=== PATIENT | female | born 1940 ===

== ENCOUNTER 2017-10-23 10:19 | Outpatient (CLI) | payer OTHER ==
[~2017-10-23 10:19] MED LIST: AMARANTH100 GM; ASA81 MG; CIPRO500 MG; COZAAR100 MG; GABAPENTIN100 MG; JANUMET 50-1,1 UDTAB; METFORMIN HCL850 MG; VERAPAMIL HCL240 MG; VISTARIL50 MG; ZOLOFT50 MG
== END 2017-10-23 11:00 | disposition home or self-care (01) ==
LOC: NUCLEAR 10:19
DX: M81.0 Age-related osteoporosis without current pathological fracture (principal); I10 Essential (primary) hypertension; M54.5 Low back pain; E78.89 Other lipoprotein metabolism disorders; E55.9 Vitamin D deficiency, unspecified; E03.8 Other specified hypothyroidism; E66.8 Other obesity; M89.9 Disorder of bone, unspecified; E11.9 Type 2 diabetes mellitus without complications; E11.51 Type 2 diabetes mellitus with diabetic peripheral angiopathy without gangrene; G62.89 Other specified polyneuropathies; E11.42 Type 2 diabetes mellitus with diabetic polyneuropathy; K21.9 Gastro-esophageal reflux disease without esophagitis

== ENCOUNTER 2017-10-23 11:08 | Outpatient (CLI) | payer OTHER | END 2017-10-23 15:05 | disposition home or self-care (01) | LOC: MAMO-SONO 11:08 | DX: Z12.31 Encounter for screening mammogram for malignant neoplasm of breast (principal); Z87.898 Personal history of other specified conditions; N63.10 Unspecified lump in the right breast, unspecified quadrant; N63.20 Unspecified lump in the left breast, unspecified quadrant; I10 Essential (primary) hypertension; M54.5 Low back pain; E78.89 Other lipoprotein metabolism disorders; E55.9 Vitamin D deficiency, unspecified; E03.8 Other specified hypothyroidism; E66.8 Other obesity; M89.9 Disorder of bone, unspecified; E11.51 Type 2 diabetes mellitus with diabetic peripheral angiopathy without gangrene; G62.9 Polyneuropathy, unspecified; E11.42 Type 2 diabetes mellitus with diabetic polyneuropathy; K21.9 Gastro-esophageal reflux disease without esophagitis; N64.4 Mastodynia ==

== ENCOUNTER 2018-04-23 12:24 | Outpatient (CLI) | payer OTHER | END 2018-04-23 12:28 | disposition home or self-care (01) | LOC: RAD 12:24 | DX: J06.9 Acute upper respiratory infection, unspecified (principal) ==

== ENCOUNTER 2020-11-17 17:00 | Emergency (ER) | payer OTHER ==
[~2020-11-17] VITALS: Ht 162.6 cm; Wt 90.7 kg
== END 2020-11-17 19:26 | disposition home or self-care (01) ==
LOC: ER 17:00
DX: E11.65 Type 2 diabetes mellitus with hyperglycemia (principal); Z79.84 Long term (current) use of oral hypoglycemic drugs

== ENCOUNTER 2022-07-16 10:59 | Emergency (ER) | payer OTHER ==
[~2022-07-16] VITALS: Ht 162.6 cm; Wt 90.7 kg
[2022-07-16] MEDS ORDERED: CELEBREX100 MG PO (14:12)
[2022-07-16] MEDS ORDERED: METAXALONE400 MG PO (14:12)
== END 2022-07-16 14:21 | disposition home or self-care (01) ==
LOC: ER 10:59
DX: M54.32 Sciatica, left side (principal); K59.00 Constipation, unspecified; E11.9 Type 2 diabetes mellitus without complications; Z79.84 Long term (current) use of oral hypoglycemic drugs; I10 Essential (primary) hypertension